=== PATIENT | female | born 1995 | race Two or more races ===

== ENCOUNTER 2021-07-06 11:14 | Emergency (ER) | payer OTHER ==
[~2021-07-06] VITALS: Ht 167.6 cm; Wt 97.5 kg
[2021-07-06 12:45] VITALS: BP 123/89
[2021-07-06] MEDS ORDERED: IBUPROFEN 800 MG TAB PO ONE (12:45)
== END 2021-07-06 13:11 | disposition home or self-care (01) ==
LOC: ER 11:14 → EDSEX 11:14 → ER 13:11
DX: S92.352A Displaced fracture of fifth metatarsal bone, left foot, initial encounter for closed fracture (principal); X50.1XXA Overexertion from prolonged static or awkward postures, initial encounter; Y93.89 Activity, other specified; Y92.89 Other specified places as the place of occurrence of the external cause; Y99.8 Other external cause status
CPT/HCPCS: 29515; 73610; 73630